=== PATIENT | female | born 1960 | race Caucasian/White ===

== ENCOUNTER → 2016-12-29 | Outpatient (CLI) | payer BC ==
--- NOTE | 2016-12-29 10:01 | DIAGNOSTIC IMAGING REPORT ---
RIGHT FIFTH TOE 3 VIEWS CLINICAL HISTORY: Right fifth toe pain status post trauma COMPARISON: None. DISCUSSION: No acute fractures or dislocations are visualized. IMPRESSION: No acute fractures or dislocations identified. Electronically signed by: Chinedu Lewis M.D. 12/29/2016 9:59 AM Dictated Date/Time: 12/29/2016 9:58 AM
== END | disposition home or self-care (01) ==
LOC: C.RADBC 09:20
PROVIDERS: ATTEND Nurse Practitioner Family
DX: M79.674 Pain in right toe(s) (principal); Z11.59 Encounter for screening for other viral diseases

== ENCOUNTER → 2016-12-29 | Outpatient (CLI) | payer BC | END | disposition home or self-care (01) | LOC: C.LAB1850 07:52 | PROVIDERS: ATTEND Nurse Practitioner Family | DX: Z11.59 Encounter for screening for other viral diseases (principal) ==

== ENCOUNTER → 2017-02-07 | Outpatient (CLI) | payer BC ==
--- NOTE | 2017-02-07 14:10 | MAMMOGRAPHY REPORT ---
BILATERAL DIGITAL SCREENING MAMMOGRAM TOMOSYNTHESIS WITH CAD: 02/07/2017 CLINICAL HISTORY: Routine screening. Patient has no complaints. TECHNIQUE: Breast tomosynthesis in addition to standard 2D mammography was performed. Current study was also evaluated with a Computer Aided Detection (CAD) system. COMPARISON: Comparison is made to exams dated: 02/03/2016 mammogram, 11/16/2014 mammogram, 11/13/2013 ma mmogram, 11/12/2012 mammogram, 11/03/2011 mammogram, and 11/02/2010 mammogram - [facility] nter. BREAST COMPOSITION: There are scattered areas of fibroglandular density in both breasts. FINDINGS: There is a stable benign-appearing 2 cm mass in the 12:00 right breast, unchanged in size dating back to at least 10/23/2007, therefore likely benign. No new suspicious mass, architectural distortion or cluster of microcalcifications is seen. IMPRESSION: ACR BI-RADS CATEGORY 2: BENIGN There is no mammographic evidence of malignancy. A 1 year screening mammogram is recommended. The p atient will receive written notification of the results. Approximately 10% of breast cancers are not detected with mammography. A negative mammographic repor t should not delay biopsy if a clinically suggestive mass is present. Sita Apodaca M.D. ay/:02/07/2017 08:06:47 Manufacturing Technology Professor: Irina JACKSON)(M), [facility] letter sent: Normal 1/2 BI-RADS Code: ACR BI-RADS Category 2: Benign
== END | disposition home or self-care (01) ==
LOC: C.MAMM 07:29
PROVIDERS: ATTEND Obstetrics & Gynecology
DX: Z12.31 Encounter for screening mammogram for malignant neoplasm of breast (principal)

== ENCOUNTER → 2017-07-03 | Outpatient (CLI) | payer BC ==
--- NOTE | 2017-07-03 13:59 | DIAGNOSTIC IMAGING REPORT ---
R FOOT MIN 3 VIEWS ROUTINE HISTORY: 57 years-old Female M79.671 Acute pain of right [id number] acute right foot pain COMPARISON: None available TECHNIQUE: 3 views of the right foot FINDINGS: Mild first MTP joint osteoarthritis. No acute fracture or dislocation identified. Mild degenerative changes are seen throughout the interphalangeal joints. No stress fracture. Moderate plantar enthesophyte of the calcaneus. Mild midfoot dorsal spurring. Negative for opaque foreign body. IMPRESSION: Degenerative changes about the foot as above without acute osseous abnormality. The above report was generated using voice recognition software. It may contain grammatical, syntax or spelling errors. Electronically signed by: Neal Chanel M.D. 07/03/2017 1:58 PM Dictated Date/Time: 07/03/2017 1:56 PM
== END | disposition home or self-care (01) ==
LOC: C.RAD1850 13:14
PROVIDERS: ATTEND Nurse Practitioner Family
DX: M79.671 Pain in right foot (principal)

== ENCOUNTER → 2018-01-01 | Outpatient (CLI) | payer BC ==
[2018-01-01 09:43] LABS: BASO % 1.5 %; BASO ABS # 0.09 K/uL (0-0.2); EOS % 1.5 %; EOS ABS # 0.09 K/uL (0-0.5); HEMATOCRIT 45.9 % (37-47); IG# 0.01 K/uL (0.00-0.02); LYMPH % 32.7 %; LYMPH ABS # 1.92 K/uL (1.2-3.4); MEAN CORPUSCULAR HEMOGLOBIN 29.6 pg (25-34); MEAN CORPUSCULAR HGB CONC 34.9 g/dl (32-36); MEAN PLATELET VOLUME 9.9 fL (7.4-10.4); MONO % 6.5 %; MONO ABS # 0.38 K/uL (0.11-0.59); NEUT % 57.6 %; NEUT ABS # 3.39 K/uL (1.4-6.5); PLATELET COUNT 447 K/uL (130-400); RED CELL DISTRIBUTION WIDTH CV 13.3 % (11.5-14.5); RED CELL DISTRIBUTION WIDTH SD 41.3 fL (36.4-46.3); WHITE BLOOD COUNT 5.88 K/uL (4.8-10.8)
[2018-01-01 10:04] LABS: ALBUMIN 3.8 gm/dl (3.4-5.0); ALT/SGPT 54 U/L (12-78); AST/SGOT 32 U/L (15-37); BLOOD UREA NITROGEN 14 mg/dl (7-18); CALCIUM 8.9 mg/dl (8.5-10.1); CARBON DIOXIDE 27 mmol/L (21-32); CHOLESTEROL 178 mg/dl (0-200); CREATININE 1.07 mg/dl (0.60-1.20); GLUCOSE 99 mg/dl (70-99); POTASSIUM 3.7 mmol/L (3.5-5.1); SODIUM 137 mmol/L (136-145)
[2018-01-01 10:13] LABS: ALKALINE PHOSPHATASE 83 U/L (45-117); LDL CHOLESTEROL CALCULATED 110 mg/dl; TOTAL PROTEIN 7.8 gm/dl (6.4-8.2)
== END | disposition home or self-care (01) ==
LOC: C.LAB1850 07:39
PROVIDERS: ATTEND Nurse Practitioner Family
DX: Z13.220 Encounter for screening for lipoid disorders (principal); I10 Essential (primary) hypertension; K21.9 Gastro-esophageal reflux disease without esophagitis